=== PATIENT | male | born 1975 | race Caucasian/White ===

== ENCOUNTER 2019-02-22 15:32 | Emergency (ER) | payer SELFPAY ==
[2019-02-22 16:13] LABS: ABNORMAL IP MESSAGE 1; HEMATOCRIT 35.9 % (42.0-52.0); HEMOGLOBIN 12.1 g/dl (14.0-18.0); MEAN CORPUSCULAR HEMOGLOBIN 29.7 pg (29.0-33.0); MEAN CORPUSCULAR HGB CONC 33.7 g/dl (32.0-37.0); POSITIVE DIFF @See below; RED BLOOD COUNT 4.08 10^6/ul (4.70-6.10); RED CELL DISTRIBUTION WIDTH 18.5 % (11.5-14.5)
[2019-02-22 16:13] LABS: WHITE BLOOD COUNT 6.3 10^3/ul (4.8-10.8)
[2019-02-22] MEDS: SOD CHLORIDE 0.9% 1,000 ML IV (16:17)
[2019-02-22 16:23] LABS: PLATELET COUNT 16 10^3/UL (140-415)
[2019-02-22 16:24] LABS: ADD MAN DIFF? YES; PATH REVIEW? YES-PATH TO CONFIRM
[2019-02-22 16:33] LABS: ANION GAP 14 (5-13); BLOOD UREA NITROGEN 4 mg/dl (7-20); CALCIUM 8.8 mg/dl (8.4-10.2); CARBON DIOXIDE 30 mmol/L (21-31); CHLORIDE 100 mmol/L (97-110); CREATININE 0.64 mg/dl (0.61-1.24); Estimated GFR > 60 mL/min (>60); GLUCOSE 109 mg/dl (70-220); PHENYTOIN (DILANTIN) < 3.0 ug/ml (10.0-20.0); SODIUM 144 mmol/L (135-144)
[2019-02-22 17:19] LABS: EOSINOPHILS % (M) 1 % (0-7); GIANT THROMBO% (M) 1 % (0-0); HYPOCHROMASIA 1+ (0-0); LYMPHOCYTES #M 3.2 10^3/ul (0.8-2.9); LYMPHOCYTES % (M) 51 % (15-51); MONOCYTE #M 0.8 10^3/ul (0.3-0.9); MONOCYTES % (M) 13 % (0-11); PLATELET ESTIMATE SIG DECREASED; POLYCHROMASIA 1+ (0-0); REACTIVE LYMPHOCYTES% (M) 1 % (0-0); SEGMENTED NEUTROPHILS (M) % 34 % (39-77); SMUDGE%M 24 % (0-0)
== END 2019-02-22 21:09 | disposition home or self-care (01) ==
LOC: E/R 15:32
DX: D69.6 Thrombocytopenia, unspecified (principal); F10.921 Alcohol use, unspecified with intoxication delirium
CPT/HCPCS: 36415; 70450; 80048; 80185; 80307; 85025; 99285-25